=== PATIENT | female | born 1965 | race Hispanic/Latino ===

== ENCOUNTER → 2019-12-31 | Outpatient (CLI) | payer OTHER ==
[~2019-12-31] MED LIST: FENTANYL CITRATE PF 50 MCG/1 ML 2ML VIAL ONE; PHENYLEPHRINE HCL 10 MG/ML 1ML VIAL IV ONE
== END | disposition home or self-care (01) ==
LOC: RAH 11:10
PROVIDERS: ATTEND Internal Medicine
DX: Z12.31 Encounter for screening mammogram for malignant neoplasm of breast (principal)
CPT/HCPCS: 77067; J2370

== ENCOUNTER → 2022-01-02 | Outpatient (CLI) | payer BC | END | disposition home or self-care (01) | LOC: RAH 11:20 | PROVIDERS: ATTEND Internal Medicine | DX: Z12.31 Encounter for screening mammogram for malignant neoplasm of breast (principal) | CPT/HCPCS: 77067 ==

== ENCOUNTER → 2023-02-05 | Outpatient (CLI) | payer BC | END | disposition home or self-care (01) | LOC: RAH 11:29 | PROVIDERS: ATTEND Internal Medicine | DX: Z12.31 Encounter for screening mammogram for malignant neoplasm of breast (principal) | CPT/HCPCS: 77067 ==

== ENCOUNTER → 2024-03-19 | Outpatient (CLI) | payer BC | END | disposition home or self-care (01) | LOC: RAH 09:20 | PROVIDERS: ATTEND Internal Medicine | DX: Z12.31 Encounter for screening mammogram for malignant neoplasm of breast (principal); R92.323 Mammographic fibroglandular density, bilateral breasts | CPT/HCPCS: 77067 ==